=== PATIENT | female | born 1930 | race Caucasian/White ===

== ENCOUNTER → 2016-04-03 | Outpatient (CLI) | payer OTHER | LOC: FIMAGING 12:48 | PROVIDERS: ATTEND Internal Medicine Hematology & Oncology | DX: M51.34 Other intervertebral disc degeneration, thoracic region (principal); M51.36 Other intervertebral disc degeneration, lumbar region; M19.042 Primary osteoarthritis, left hand; M17.11 Unilateral primary osteoarthritis, right knee; Z96.652 Presence of left artificial knee joint ==

== ENCOUNTER 2016-06-24 08:15 | Inpatient (IN) | payer OTHER ==
--- NOTE | 2016-06-24 08:28 | CPEKG ---
Heart Rate: 73 RR Interval: 822 QRSD Interval: 156 QT Interval: 388 QTC Interval: 428 QRS [place]: 54 T [place]: -18 EKG Severity - ABNORMAL ECG - EKG Impression: ATRIAL FIBRILLATION, V-RATE 63-99 EKG Impression: RIGHT BUNDLE BRANCH BLOCK Electronically Signed By: Jorge Rivera 24-Jun-2016 09:02:25
--- NOTE | 2016-06-24 08:32 | EDPHY ---
H & P Time Seen by Provider: 06/24/16 08:22 HPI/ROS: CHIEF COMPLAINT: Syncope, head injury HISTORY OF PRESENT ILLNESS: The patient has a history of atrial fibrillation and is anticoagulated. She is brought to the emergency department by paramedics after a syncopal episode at home. The patient did sustain a significant injury to her head resulting in a very large forehead hematoma. The patient denies antecedent chest pain or shortness of breath. The patient does have a history of atrial fibrillation and is on Coreg. The patient denies any lower extremity complaints of pain, abdominal pain or low back pain. The patient does complain of a mild to moderate headache. The patient does complain of some mild posterior neck pain. Paramedics did report a noted significant sinus pauses in route. In reviewing the rhythm strips, there appears to be episodes of to 2 second pauses. They reported they felt a observed 10 second pauses but were unable to capture them. REVIEW OF SYSTEMS: A comprehensive 10 point review of systems is otherwise negative aside from elements mentioned in the history of present illness. Source: Patient Exam Limitations: No limitations - Personal History Tetanus Vaccine Date: A CHILDHOOD - Medical/Surgical History Hx Asthma: No Hx Chronic Respiratory Disease: Yes Hx Diabetes: No Hx Cardiac Disease: Yes Hx Renal Disease: Yes Hx Cirrhosis: No Hx Alcoholism: No Hx HIV/AIDS: No Hx Splenectomy or Spleen Trauma: No Other PMH: medical- COPD, CHF, [place], HTN, CKD, chronic AFIB, heart failure, dyslipidemia, chronic O2. surgical- tonsilectomy, ortho, stent x2, mitral valve repaired. open heart surgery may 2013 - Social History Smoking Status: Former smoker - Physical Exam Exam: General Appearance: Alert, no distress Head: Large 10 cm x 10 cm frontal scalp hematoma noted with superficial abrasions Eyes: Pupils equal, round, reactive ENT, Mouth: No hemotympanum, no oral trauma Neck: In cervical collar, minimal tenderness to palpation noted in the posterior cervical spine, poorly localized Respiratory: No chest wall tender, subcutaneous air, lungs clear bilaterally Cardiovascular: Irregular rate, 2/6 systolic ejection murmur Abdomen: Abdomen is soft and nontender, pelvis stable Skin: No lacerations, No abrasion Back: No midline T/L/S pain Extremities: Nontender, full range of motion Neurological: A&Ox3, normal motor function, normal sensory exam Constitutional: Initial Vital Signs O2 Sat (%) 100 06/24/16 08:28 O2 Delivery Mode Nasal Cannula O2 (L/minute) 3 Allergies/Adverse Reactions: heparin Allergy (Severe, Verified 06/24/16 09:59) Rash Home Medications: Medication Instructions Recorded Allopurinol [Allopurinol 100 MG 100 mg PO DAILY 07/25/11 (*)] Multivitamins [Multivitamin (*)] 1 each PO DAILY 07/25/11 Atorvastatin Calcium [Lipitor 20 20 mg PO HS 03/08/13 mg (*)] Famotidine [Pepcid 20 MG (*)] 20 mg PO DAILY 04/29/13 Aspirin [Aspirin 81mg (*)] 81 mg PO DAILY 07/08/13 Oxybutynin Chloride [Ditropan] 5 mg PO BID #60 tab 07/15/13 Potassium Cl [Klor-Con 20 meq (*)] 20 meq PO BID 09/22/13 Warfarin Sodium [Coumadin 3MG (*)] 3 mg PO MWF@16 09/22/13 Calcitriol [Calcitriol (*)] 0.5 mcg PO MOTUWETHFR 06/24/16 Carvedilol [Coreg (*)] 25 mg PO BIDMEAL 06/24/16 Furosemide [Lasix 80 MG (*)] 80 mg PO BID@06/24/16 Herbals/Supplements -Info Only 1 ea PO DAILY 06/24/16 Methimazole [Tapazole 5MG (*)] 5 mg PO DAILY 06/24/16 Warfarin Sodium [Coumadin 3MG (*)] 1.5 mg PO SUTUTHSA@16 06/24/16 Medical Decision Making - Diagnostics EKG Interpretation: EKG: Complete interpretation has been separately recorded in the [facility] archive. Summary impression: Atrial fibrillation, right bundle branch block, rate 73 Imaging Results: Imaging Impressions Chest X-Ray 06/24/16 08:28 Impression: Cardiomegaly with evidence of underlying congestive heart failure with mild pulmonary vascular congestion and interstitial prominence and small left pleural effusion. Cervical Spine CT 06/24/16 08:29 Impression: 1. No acute fracture or soft tissue swelling. 2. Large left thyroid mass compressing and displacing the airway to the right 3. If the patient has persistent pain or neurologic deficits, consider cervical spine MRI. Findings discussed with Emergency Department physician, Jorge Rivera on June 24, 2016 at 9:[address] 06/24/16 08:29 Impression: 1. No acute intracranial hemorrhage or acute fracture. 2. Large right frontal scalp hematoma. Findings discussed with Emergency Department physician, Jorge Rivera on June 24, 2016 at 9:18 a.m. ED Course/Re-evaluation: The patient presents to the ED after a unwitnessed syncopal episode. She presents with fairly significant head trauma. She was taken for a stat CT scan of the head and cervical spine which demonstrate no evidence of an acute intracranial hemorrhage or skull fracture. The patient has no evidence of cervical spine fracture. She does have a known thyroid mass. The patient was placed on a cardiac catheterization technician. We did observe several episodes of sinus pauses in the emergency department along just was approximately 9 seconds. She had several other pauses 2-3 seconds in duration. The patient had no loss of consciousness during these episodes. I have cleared the patient's cervical spine radiographically. Consultation was made with the patient's regular rate clerk passenger. She currently is on 25 mg of Coreg twice daily. Cardiology recommends admission to the PCU by the hospitalist. Coreg should be held. They will see the patient shortly. Pacemaker pads have been applied to the patient's chest. The patient is noted to have chronic significant cardiomegaly on her chest x-ray without evidence of significant pulmonary edema. Patient was re-evaluated at 9:30 a.m.. She continues to be neurologically intact. Repeat examination demonstrates no evidence of a obvious additional traumatic injury I spoke the hospitalist at 9:32 a.m. The patient will be admitted by Dr. Corey Hairston. While waiting for a bed to the PCU, the patient was noted to have a significant 20 second pause with associated loss of consciousness. She return to a normal atrial fibrillation rhythm before the transthoracic pacemaker could be started. The patient was moved to the resuscitation room. Her bed status has been upgraded to ICU. I consulted with Dr. Michael Dillard from Cardiology at 10:20 a.m. and requested emergent ED consultation. He is evaluating the patient at 10 :22am. 11:30 a.m.: Patient continues to await transfer to the cardiac catheterization lab. She has been placed on a transthoracic pacemaker in the emergency department. She has required episodic bouts of transthoracic pacing. Patient received IV morphine for pain control. Differential Diagnosis: Differential diagnosis considered includes intracranial hemorrhage, skull fracture, cervical spine fracture, myocardial infarction, congestive heart failure, arrhythmia Critical Care Time: Critical care time exclusive of procedures and exclusive of the PA's time was 85 minutes, performed by myself, Jorge Rivera MD. The patient presents to the ED with syncope resulting in fairly significant facial trauma. The patient was noted to have sinus pauses in the emergency department. Pacemaker pads have been applied. The patient will require admission to a monitored bed this evening. Consultation was made with both Cardiology and hospital base Medicine regarding the patient's presentation and admission. - Data Points Laboratory Results: Laboratory Results 06/24/16 08:20 06/24/16 08:20 06/24/16 06/24/16 06/24/16 08:20 08:20 08:20 WBC 6.09 10^3/uL 10^3/uL (3.80-9.50) RBC 3.85 10^6/uL L 10^6/uL (4.18-5.33) Hgb 10.4 g/dL L g/dL (12.6-16.3) Hct 33.6 % L % (38.0-47.0) MCV 87.3 fL fL (81.5-99.8) MCH 27.0 pg L pg (27.9-34.1) MCHC 31.0 g/dL L g/dL (32.4-36.7) RDW 16.7 % H % (11.5-15.2) Plt Count 371 10^3/uL 10^3/uL (150-400) MPV 9.8 fL fL (8.7-11.7) Neut % (Auto) 56.1 % % (39.3-74.2) Lymph % (Auto) 25.0 % % (15.0-45.0) [place] % (Auto) 9.9 % % (4.5-13.0) Eos % (Auto) 7.6 % % (0.6-7.6) Baso % (Auto) 0.7 % % (0.3-1.7) Nucleat RBC Rel Count 0.0 % % (0.0-0.2) Absolute Neuts (auto) 3.43 10^3/uL 10^3/uL (1.70-6.50) Absolute Lymphs (auto) 1.52 10^3/uL 10^3/uL (1.00-3.00) Absolute Monos (auto) 0.60 10^3/uL 10^3/uL (0.30-0.80) Absolute Eos (auto) 0.46 10^3/uL H 10^3/uL (0.03-0.40) Absolute Basos (auto) 0.04 10^3/uL 10^3/uL (0.02-0.10) Absolute Nucleated RBC 0.00 10^3/uL 10^3/uL (0-0.01) Immature Gran % 0.7 % % (0.0-1.1) Immature Gran # 0.04 10^3/uL 10^3/uL (0.00-0.10) PT 31.7 SEC H SEC (12.0-15.0) INR 3.02 H (0.83-1.16) APTT 39.0 SEC H SEC (23.0-38.0) Sodium 144 mEq/L mEq/L (134-144) Potassium 4.0 mEq/L mEq/L (3.5-5.2) Chloride 106 mEq/L mEq/L (97-110) Carbon Dioxide 28 mEq/l mEq/l (22-31) Anion Gap 10 mEq/L mEq/L (8-16) BUN 49 mg/dL H mg/dL (7-23) Creatinine 1.6 mg/dL H mg/dL (0.6-1.0) Estimated GFR 31 Glucose 112 mg/dL H mg/dL (70-100) Calcium 9.8 mg/dL mg/dL (8.5-10.4) Troponin I 0.014 ng/mL ng/mL (0-0.034) Medications Given: Discontinued Medications Acetaminophen (Tylenol) 1,000 mg PO EDNOW ONE Stop: 06/24/16 09:50 Last Admin: 06/24/16 09:50 Dose: 1,000 mg Oxycodone HCl (Oxycodone Ir) 5 mg PO EDNOW ONE Stop: 06/24/16 10:02 Last Admin: 06/24/16 10:57 Dose: 5 mg Departure - Departure Disposition: [facility] Acute Clinical Impression: Atrial fibrillation, Sinus pause, Syncope, Scalp hematoma, Mitral valve regurgitation Condition: Fair
[2016-06-24 08:41] LABS: % IMMATURE GRANULYOCYTES 0.7 % (0.0-1.1); ABSOLUTE IMMATURE GRANULOCYTES 0.04 10^3/uL (0.00-0.10); ADD DIFF? NO; ADD MORPH? NO; ADD SCAN? NO; ATYPICAL LYMPHOCYTE FLAG 0 (0-99); FRAGMENT RBC FLAG 20 (0-99); HEMATOCRIT 33.6 % (38.0-47.0); HEMOGLOBIN 10.4 g/dL (12.6-16.3); LEFT SHIFT FLG 0 (0-99); LIPEMIA HEMOLYSIS FLAG 80 (0-99); MEAN CELL VOLUME 87.3 fL (81.5-99.8); MEAN PLATELET VOLUME 9.8 fL (8.7-11.7); PLATELET CLUMPS FLAG 20 (0-99); PLATELET COUNT 371 10^3/uL (150-400); RED BLOOD CELL COUNT 3.85 10^6/uL (4.18-5.33); RED CELL DISTRIBUTION WIDTH 16.7 % (11.5-15.2)
[2016-06-24 08:55] LABS: ANION GAP 10 mEq/L (8-16); CALCIUM 9.8 mg/dL (8.5-10.4); CARBON DIOXIDE 28 mEq/l (22-31); CHLORIDE 106 mEq/L (97-110); CREATININE 1.6 mg/dL (0.6-1.0); GLOMERULAR FILTRATION RATE 31; GLUCOSE 112 mg/dL (70-100); SODIUM 144 mEq/L (134-144)
[2016-06-24 09:05] LABS: TROPONIN I 0.014 ng/mL (0-0.034)
[2016-06-24 09:17] LABS: INR 3.02 (0.83-1.16); PROTIME(PATIENT) 31.7 SEC (12.0-15.0)
[2016-06-24] MEDS ORDERED: ACETAMINOPHEN 500 MG TAB ONE (09:45)
[2016-06-24] MEDS ORDERED: ACETAMINOPHEN 500 MG TAB PO ONE (09:49)
[2016-06-24] MEDS ORDERED: oxyCODONE IR 5 MG TAB PO ONE (10:01)
[2016-06-24] MEDS ORDERED: LIDOCAINE 1% 30 ML SDV ONE (11:33)
[2016-06-24] MEDS ORDERED: fentaNYL 100 MCG/2 ML INJ ONE (11:34)
[2016-06-24] MEDS ORDERED: MIDAZOLAM 2 MG/2 ML VIAL ONE (11:34)
[2016-06-24] MEDS ORDERED: LIDO/EPI 1% **for epidural** 30 ML SDV ONE (11:34)
[2016-06-24] MEDS ORDERED: BUPIVACAINE 0.5% 30 ML SDV ONE (11:34)
[2016-06-24] MEDS ORDERED: IOPAMIDOL (ISOVUE-300) 150 ML BTL ONE (11:35)
--- NOTE | 2016-06-24 11:44 | PDCARCONS ---
Cardiology Consult Reason for Consult: Profound pauses (>10 seconds) Chief Complaint: Syncope Requesting Physician: ER physician History of Present Illness: Patient is an 85 y/o female with multiple medical issues (CAD/PCI, multiple myeloma, diastolic CHF), HTN, HLP, MVR with MAZE (2013), chronic atrial fibrillation (on coumadin with [id number] score of 6), CRI, COPD, and hypothyroidism, who presented to [facility] ER after syncope and fall at home. Patient has been doing very well, without any complaints - according to both the patient and daughter, present with the patient in the room today. No chest pains or pressure. No PND or orthopnea. Patient has reportedly never had a syncopal event in the past. Fall today led to superficial trauma to her forehead. CT scan in the ER without intercranial pathology noted. Patient is a DNR, and they would otherwise, according to both the patient and the daughter , not have come to the ER, but the trauma from the fall led to the desire for work up. INR today was noted to be 3. Conversations between the patient and daughter led to the desire to have a cardiac work up performed. Several times, while talking to the patient (who reportedly lives alone), she passed out with panel monitor revealing pauses that were up to 30 seconds in duration, prior to cardiology presence in the ER exam room. Earlier in the day, the patient's pauses were only 8 seconds in duration, and did not lead to altered mental status. The patient is on max dose therapy on Coreg (25 mg twice per day ), but the duration and acuity of the symptoms noted require more accelerated resolution. In depth conversation with the patient and daughter about risks and benefits of the PPM procedure. Furthermore, it was discussed that the PPM implant is NOT similar to "open heart surgery". Consent was obtained via conversations with the daughter, given the patient being in and out of lucidity. There is a risk given the patient's INR being 3, but once again, the patient's pauses were becoming more protracted and severe with ongoing symptoms being noted with nearly every event noted on telemetry. 12 point review of systems was unremarkable outside of that which was mentioned above. History Information - Allergies/Home Medication List Allergies/Adverse Reactions: heparin Allergy (Severe, Verified 06/24/16 09:59) Rash Home Medications: Allopurinol [Allopurinol 100 MG (*)] 100 mg PO DAILY 07/25/11 [Last Taken ] Multivitamins [Multivitamin (*)] 1 each PO DAILY 07/25/11 [Last Taken 06/23/16] Atorvastatin Calcium [Lipitor 20 mg (*)] 20 mg PO HS 03/08/13 [Last Taken ] Famotidine [Pepcid 20 MG (*)] 20 mg PO DAILY 04/29/13 [Last Taken 06/23/16] Aspirin [Aspirin 81mg (*)] 81 mg PO DAILY 07/08/13 [Last Taken 06/23/16] Potassium Cl [Klor-Con 20 meq (*)] 20 meq PO BID 09/22/13 [Last Taken 06/23/16 21:00] Warfarin Sodium [Coumadin 3MG (*)] 3 mg PO MWF@16 09/22/13 [Last Taken 06/23/16] Calcitriol [Calcitriol (*)] 0.5 mcg PO MOTUWETHFR 06/24/16 [Last Taken 06/23/16] Carvedilol [Coreg (*)] 25 mg PO BIDMEAL 06/24/16 [Last Taken 06/23/16 18:00] Furosemide [Lasix 80 MG (*)] 80 mg PO BID@06/24/16 [Last Taken 06/23/16 19 :00] Herbals/Supplements -Info Only 1 ea PO DAILY 06/24/16 [Last Taken Unknown] Methimazole [Tapazole 5MG (*)] 5 mg PO DAILY 06/24/16 [Last Taken 06/23/16] Warfarin Sodium [Coumadin 3MG (*)] 1.5 mg PO SUTUTHSA@16 06/24/16 [Last Taken ] - Past Medical History atrial fibrillation, coronary artery disease, GERD, hearing deficit, hypertension Additional medical history: [place], CRI, COPD, multiple myeloma - Surgical History Reports: coronary stent, vascular surgery Additional surgical history: MVR (2013) - Family History Positive for: non-pertinent - Social History Smoking Status: Former smoker Alcohol Use: None Drug Use: None Cardiac History - Cardiac History Past Cardiac History: CAD, PCI, MVR Cardiac Risk Factors: hypertension (>140/90), lipidemia, age > 65 Timing/Duration: Hours Severity: severe Severity Scale: 10 Activities at Onset: activity Modifying Factors: improves with: oxygen, rest Associated Symptoms: syncope [place] Risk Evaluation age greater or equal to 65: yes greater or equal to 3 CAD risk factors: yes known CAD(stenosis greater or eqaul to 50%): yes ASA use in past 7 days: yes severe angina(greater or equal to 2 episodes in 24hrs): no EKG ST changes greater or equal to 0.5mm: no positive cardiac marker: no Total Score: 4 [place] Score: 19.9% risk Physical Exam Temp Pulse Resp BP Pulse Ox 36.6 C 100 16 142/70 H 98 06/24/16 08:29 06/24/16 11:00 06/24/16 11:00 06/24/16 11:00 06/24/16 11:00 O2 (L/minute) 3 Constitutional: chronically ill appearing, uncomfortable Eyes: PERRL Ears, Nose, Mouth, Throat: moist mucous membranes Cardiovascular: systolic murmur, irregularly irregular, bradycardia, No edema Peripheral Pulses: 2+: dorsalis-pedis (R), dorsalis-pedis (L) Respiratory: no respiratory distress, no rales or rhonchi Gastrointestinal: normoactive bowel sounds Skin: warm, other (head haematoma) Musculoskeletal: no muscle tenderness Neurologic: AAOx3 (when heart rate was normal....when pauses noted, patient would syncope), weakness, CN II-XII Intact Psychiatric: interacting appropriately Lab and Imaging 06/24/16 08:20 06/24/16 08:20 WBC 6.09 10^3/uL (3.80-9.50) 06/24/16 08:20 RBC 3.85 10^6/uL (4.18-5.33) L 06/24/16 08:20 Hgb 10.4 g/dL (12.6-16.3) L 06/24/16 08:20 Hct 33.6 % (38.0-47.0) L 06/24/16 08:20 MCV 87.3 fL (81.5-99.8) 06/24/16 08:20 MCH 27.0 pg (27.9-34.1) L 06/24/16 08:20 MCHC 31.0 g/dL (32.4-36.7) L 06/24/16 08:20 RDW 16.7 % (11.5-15.2) H 06/24/16 08:20 Plt Count 371 10^3/uL (150-400) 06/24/16 08:20 MPV 9.8 fL (8.7-11.7) 06/24/16 08:20 Neut % (Auto) 56.1 % (39.3-74.2) 06/24/16 08:20 Lymph % (Auto) 25.0 % (15.0-45.0) 06/24/16 08:20 [place] % (Auto) 9.9 % (4.5-13.0) 06/24/16 08:20 Eos % (Auto) 7.6 % (0.6-7.6) 06/24/16 08:20 Baso % (Auto) 0.7 % (0.3-1.7) 06/24/16 08:20 Nucleat RBC Rel Count 0.0 % (0.0-0.2) 06/24/16 08:20 Absolute Neuts (auto) 3.43 10^3/uL (1.70-6.50) 06/24/16 08:20 Absolute Lymphs (auto) 1.52 10^3/uL (1.00-3.00) 06/24/16 08:20 Absolute Monos (auto) 0.60 10^3/uL (0.30-0.80) 06/24/16 08:20 Absolute Eos (auto) 0.46 10^3/uL (0.03-0.40) H 06/24/16 08:20 Absolute Basos (auto) 0.04 10^3/uL (0.02-0.10) 06/24/16 08:20 Absolute Nucleated RBC 0.00 10^3/uL (0-0.01) 06/24/16 08:20 Immature Gran % 0.7 % (0.0-1.1) 06/24/16 08:20 Immature Gran # 0.04 10^3/uL (0.00-0.10) 06/24/16 08:20 PT 31.7 SEC (12.0-15.0) H 06/24/16 08:20 INR 3.02 (0.83-1.16) H 06/24/16 08:20 APTT 39.0 SEC (23.0-38.0) H 06/24/16 08:20 Sodium 144 mEq/L (134-144) 06/24/16 08:20 Potassium 4.0 mEq/L (3.5-5.2) 06/24/16 08:20 Chloride 106 mEq/L (97-110) 06/24/16 08:20 Carbon Dioxide 28 mEq/l (22-31) 06/24/16 08:20 Anion Gap 10 mEq/L (8-16) 06/24/16 08:20 BUN 49 mg/dL (7-23) H 06/24/16 08:20 Creatinine 1.6 mg/dL (0.6-1.0) H 06/24/16 08:20 Estimated GFR 31 06/24/16 08:20 Glucose 112 mg/dL (70-100) H 06/24/16 08:20 Calcium 9.8 mg/dL (8.5-10.4) 06/24/16 08:20 Troponin I 0.014 ng/mL (0-0.034) 06/24/16 08:20 Visualized and Interpreted Chest x-ray results: Yes Chest X-ray Interpretation: other (cardiomegaly with effusions) Visualized and Interpreted EKG results: Yes EKG additional interpertation: atrial fibrillation with protracted pauses noted. Telemetry: atrial fibrillation with slow ventricular response. Pauses were >10 sec A/P Assessment: Patient is an 85 y/o female with multiple medical issues. Newly noted pauses > 10 seconds with syncope with underlying atrial fibrillation history. Head trauma secondary to fall today from syncope. INR noted to be 3. Patient and daughter wanting to have Pacer implanted, but not wanting to have CPR performed . Patient was wishing for nothing more to be done, but daughter stated that the pacer is desired. Long discussion about two options - A: do no further medical procedures, and allow the patient comfort or B: implant pacer (single lead). Plan: Risks and benefits were discussed. A single lead pacer is being implanted. Further discussion post procedure. This procedure being semi urgent given the instability of the patient with lengthy pauses being noted.
[2016-06-24] MEDS ORDERED: NS 1,000 ML IV ONE (12:07)
[2016-06-24] MEDS ORDERED: DIAZEPAM 5 MG TAB PO ONE (12:07)
[2016-06-24] MEDS ORDERED: diphenhydrAMINE 25 MG CAP PO ONE (12:07)
[2016-06-24] MEDS ORDERED: ceFAZolin 2 GM/DEXTROSE 100 ML IV ONE (12:07)
[2016-06-24] MEDS ORDERED: BACITRACIN IRRIGATION/NS 50,000 UNITS/1,000 ML BTL IRR ONE (12:07)
--- NOTE | 2016-06-24 14:34 | SUROPNOTE ---
[facility] Operative Report - Surgery Procedure: Venogram for left subclavian assessment PPM implant (single chamber given long standing atrial fibrillation) Indication: Protracted pauses (>10 seconds) with syncope Procedure details: Consent was obtained in the ER with nursing staff present, in an urgent manner. The patient was not able to sign consent given her inability to maintain consciousness. Her daughter was present with the patient and understood the risks and benefits of the pending surgery. Initial reports of DNR were addressed (in that this condition would have to be withheld for the pending PPM procedure). Transcutaneous pacer pads were in place in the ER, and used extensively until PPM was placed successfully. No transvenous pacing was implemented given the patient's history (severe TR and cardiomegaly - which would make placement of this bridge difficult, in a patient that needed to have semi urgent placement of PPM). Patient was brought to the cardiac company laborer and prepped in the usual sterile fashion. A Venogram was performed to both isolate and ensure patency of the left subclavian vein. Lidocaine was used for local anesthetic, and a single stick was performed with isolation of the subclavian vein by anatomic markers and the previously reported venogram. A wire was placed through the needle, and a pocket was then created. The wire was pulled into the pocked, and a raytech soaked in Bacitracin was placed in the pocket. The ventricular lead was placed after numerous trials and iterations on the stylets. Dr. Heidy Valderrama was called into the room given the anatomy that was noted, and was ultimately successful with placement of an inferior position. The patient's severe tricuspid regurgitation and severely dilated right atrium made standard positioning on the septal wall impossible. RV lead data: Biotronik Solia S 53 [id number] with threshold of 0.6V at 0.4 ms. R wave was 8.5 mV and Imp was 526 ohms. This lead was sutured into position. The Raytech was explanted and the pocket was inspected for haemostasis (given the INR of 3). No bleeding was appreciated, and the pocket was aggressively flushed. The device (Etrinsa 8 SR-T ([id number]) was placed into the pocket after attachment of the ventricular lead. This device was sutured into position. Fluoroscopic review of the device was performed. No complications were appreciated The patient tolerated the procedure well. Morning CXR and interrogation are pending. I spoke with the patient's daughter.
--- NOTE | 2016-06-24 15:22 | CPEKG ---
Heart Rate: 85 RR Interval: 706 P-R Interval: 192 QRSD Interval: 158 QT Interval: 400 QTC Interval: 476 P [place]: 0 QRS [place]: 4 T Wave [place]: -49 EKG Severity - ABNORMAL ECG - EKG Impression: VENTRICULAR-PACED COMPLEXES EKG Impression: RIGHT BUNDLE BRANCH BLOCK Electronically Signed By: Sunitha Segura 25-Jun-2016 10:01:36
[2016-06-24] MEDS ORDERED: PHYTONADIONE 2 MG in NS 50 ML IV ONE (19:07)
[2016-06-24] MEDS ORDERED: ONDANSETRON DISINTEGRATING 4 MG TAB PO PRN (19:08)
[2016-06-24] MEDS ORDERED: oxyCODONE IR 5 MG TAB PO PRN (19:14)
[2016-06-24] MEDS: ONDANSETRON 4 MG/2 ML VIAL IVP PRN (19:45)
--- NOTE | 2016-06-24 19:58 | GHP ---
[f rep st] HISTORY AND PHYSICAL DATE OF ADMISSION: 06/24/2016 HISTORY OF PRESENT ILLNESS: The patient is a pleasant 85-year-old female with a history of atrial f ibrillation and coronary disease, who presents with a fall today. It sounds as if she had syncope a nd fell. She landed on her face. Prior to that she had been doing well. She denied antecedent jimmie st pains and chest pressure. She has not been having any heart failure symptoms, such as PND or ort hopnea. Does not have a history of syncopal events in the past. She had some trauma to her forehea d. In the emergency department, she had a CT scan showing no intracranial pathology, but she is not ed to have a number of pauses, including up to 30 seconds in duration. She was seen by Cardiology a nd brought emergently for pacemaker placement, following discussion about the risks and benefits and her DNR status. I am seeing the patient after pacemaker placement. Currently, the patient says she feels well. Pain is reasonably well controlled. She is able to mov e her right eye without pain or impingement. She has a significant amount of ecchymoses in her righ t forehead and right upper eyelid. She says her left hand feels strong, and her pain is reasonably well controlled. She denies chest pain and shortness of breath. She wants to know if she can eat. I have discussed case with Dr. Michael Dillard, as well as Dr. Akshat Rivera in the emergency department. REVIEW OF SYSTEMS: A complete 10-point review of systems conducted and negative except as noted in the HPI. PAST MEDICAL HISTORY: 1. Coronary artery disease status, post PCI. 2. Multiple myeloma. 3. Diastolic heart failure. 4. Hypertension. 5. Hyperlipidemia. 6. Mitral valve replacement with Maze procedure in 2013. 7. Chronic atrial fibrillation. [id number] score 6. 8. Chronic kidney disease. 9. Chronic obstructive pulmonary disease. 10. Hypothyroidism. 11. Gout. ALLERGIES: Heparin. HOME MEDICATIONS: Aspirin, carvedilol, warfarin, allopurinol, atorvastatin, calcitriol, famotidine, furosemide, methimazole, multivitamin, oxybutynin, potassium chloride. SOCIAL HISTORY: She lives alone near [facility]. She is a DNR. She does not drink alcohol or smok e cigarettes. FAMILY HISTORY: Parents . PHYSICAL EXAMINATION: VITAL SIGNS: Temp 36.3, blood pressure 139/79, pulse 87, breathing 18 times a minute, 99% on 3 L. GENERAL: No acute distress. HEENT: She has multiple facial ecchymoses, inc luding a [id number] sized hematoma on her right forehead and significant hematoma in her right eyelid. As I had mentioned, her extraocular movements are intact without impingement, sticking or p ain. Oropharynx is clear. Mucous membranes are moist. NECK: Supple without lymphadenopathy or JV D. LUNGS: Clear to auscultation bilaterally. HEART: S1, S2. Her pacer site is clean, dry and in tact without obvious hematoma. ABDOMEN: Full, soft, nontender, nondistended. There is no rebound or guarding. EXTREMITIES: Lowe r extremities showed no edema. Calves are nontender. SKIN: Without rash. The aforementioned ecch ymoses. NEUROLOGIC: Grossly nonfocal. STUDIES: Initial EKG shows AFib at 73 with normal axis and intervals. Initial chest x-ray shows ca rdiomegaly with some upper zone redistribution but no pneumothorax. Head CT shows no intracranial h emorrhage, no acute fracture; large scalp hematoma. Repeat EKG, also interpreted by me, shows a karri tricular-based rhythm and a left bundle branch block pattern. Post placement chest x-ray, interpret ed by me, shows a single-lead pacemaker placement without pneumothorax. I have discussed the case with Dr. Michael Dillard. ASSESSMENT/PLAN: This is an 85-year-old female with atrial fibrillation, on anticoagulation, with s ignificant sinus pauses and resultant syncope. 1. Sinus pauses: I agree that pacemaker was indicated. Despite her julius agents, she would have r equired some sort of invasive pacing, irrespective, and single-lead pacer was reasonable. 2. Anticoagulation, with falls: I think the patient does have a high stroke risk; there is no ques tion about that; however, she is also at risk for bleeding acutely, both into her pacer pocket which gives her risk of hematoma and subsequent infection, as well as on her forehead. Discussed this Dr Gilles Dillard. Will give her 2 mg of vitamin K and FFP now. 3. Falls: It is probably appropriate that Trauma see her. I will call them to do a consultation. She has a soft belly, and she has had imaging of multiple things, including a C-spine (which I negl ected to report in the imaging section), which shows no acute fracture or soft tissue mass. It does note a large left thyroid mass displacing the airway to the right. 4. Thyroid mass: She is on methimazole. I suspect she has an active goiter. This can be verified with her primary care physician. 5. Multiple myeloma: Her counts seem normal other than mild anemia. 6. Chronic kidney disease: Creatinine is essentially at its baseline. 7. Diastolic heart failure: Will continue her diuretics. 8. Atrial fibrillation: Will hold her warfarin and do a moderate reversal of her anticoagulation w ith the goal of resuming warfarin in a day or 2. I will hold her carvedilol tonight, but I suspect it should be reinstituted in the morning. DISPOSITION: She is inpatient. CODE STATUS: Do not resuscitate. PT and OT will see her. /[id number]/MODL
[2016-06-24] MEDS: POTASSIUM CL 20 MEQ TAB PO SCH (20:55)
[2016-06-24] MEDS: CALCITRIOL 0.25 MCG CAP PO SCH (20:55)
[2016-06-24] MEDS: OXYBUTYNIN CHLORIDE 5 MG TAB PO SCH (20:55)
[2016-06-24] MEDS: ATORVASTATIN CALCIUM 20 MG TAB PO SCH (20:55)
[2016-06-24] MEDS: ACETAMINOPHEN 500 MG TAB PO SCH (21:05)
[2016-06-25 05:08] LABS: % IMMATURE GRANULYOCYTES 0.5 % (0.0-1.1); ABSOLUTE IMMATURE GRANULOCYTES 0.04 10^3/uL (0.00-0.10); ADD DIFF? NO; ADD MORPH? NO; ADD SCAN? NO; ATYPICAL LYMPHOCYTE FLAG 0 (0-99); FRAGMENT RBC FLAG 20 (0-99); HEMATOCRIT 30.4 % (38.0-47.0); HEMOGLOBIN 9.4 g/dL (12.6-16.3); LEFT SHIFT FLG 0 (0-99); LIPEMIA HEMOLYSIS FLAG 80 (0-99); MEAN CELL HEMOGLOBIN 27.2 pg (27.9-34.1); MEAN CELL HEMOGLOBIN CONCENTR. 30.9 g/dL (32.4-36.7); MEAN CELL VOLUME 88.1 fL (81.5-99.8); PLATELET CLUMPS FLAG 0 (0-99); PLATELET COUNT 300 10^3/uL (150-400); RED BLOOD CELL COUNT 3.45 10^6/uL (4.18-5.33); RED CELL DISTRIBUTION WIDTH 16.7 % (11.5-15.2)
[2016-06-25 05:24] LABS: ANION GAP 9 mEq/L (8-16); CALCIUM 9.8 mg/dL (8.5-10.4); CARBON DIOXIDE 26 mEq/l (22-31); CHLORIDE 108 mEq/L (97-110); CREATININE 1.4 mg/dL (0.6-1.0); GLOMERULAR FILTRATION RATE 36; GLUCOSE 94 mg/dL (70-100); POTASSIUM 4.6 mEq/L (3.5-5.2); SODIUM 143 mEq/L (134-144)
[2016-06-25 05:29] LABS: INR 1.96 (0.83-1.16); PROTIME(PATIENT) 22.4 SEC (12.0-15.0)
[2016-06-25] MEDS: ACETAMINOPHEN 500 MG TAB PO SCH ×3 (05:38→20:52)
[2016-06-25] MEDS: METHIMAZOLE 5 MG TAB PO SCH (08:59)
[2016-06-25] MEDS: MULTIVITAMINS 1 EACH TAB PO SCH (08:59)
[2016-06-25] MEDS: POTASSIUM CL 20 MEQ TAB PO SCH ×2 (08:59→20:52)
[2016-06-25] MEDS: FAMOTIDINE 20 MG TAB PO SCH (08:59)
[2016-06-25] MEDS: FUROSEMIDE 80 MG TAB PO SCH ×2 (08:59→15:22)
[2016-06-25] MEDS: OXYBUTYNIN CHLORIDE 5 MG TAB PO SCH ×2 (08:59→20:52)
[2016-06-25] MEDS: ALLOPURINOL 100 MG TAB PO SCH (09:00)
[2016-06-25] MEDS ORDERED: Herbals/Supplements -Info Only PO SCH (09:00)
--- NOTE | 2016-06-25 09:39 | CPEKG ---
Heart Rate: 66 RR Interval: 909 QRSD Interval: 150 QT Interval: 436 QTC Interval: 457 QRS Collins: 93 T Wave Collins: -70 EKG Severity - ABNORMAL ECG - EKG Impression: ACCELERATED JUNCTIONAL ESCAPE RHYTHM EKG Impression: RIGHT BUNDLE BRANCH BLOCK EKG Impression: BORDERLINE ST DEPRESSION, LATERAL LEADS Electronically Signed By: Sunitha Segura 25-Jun-2016 10:01:44
--- NOTE | 2016-06-25 10:33 | PDCARPN ---
Cardiology Progress Note Chief Complaint: Patient with complaints of neck pains (moreso today than in comparison to yesterday). Assessment/Plan: Assessment: 06-25-16 Patient doing well today. Chief complaint is neck pains - this was not an issue yesterday - there was more an issue with forhead pains from the fall. Single lead pacer was implanted yesterday with moderate difficulty secondary to the patient's cardiac anatomy (dilated RA, dilated IVC, and severe TR). A single lead pacer was successfully placed yesterday with excellent pacing parameters noted this morning with interrogation. CXR post procedure was without pneumothorax, and this morning's CXR is pending. Minimal haematoma noted (in the setting of an INR that was elevated to 3 periprocedure). Patient feeling well today. No chest pains or pressure, just aches to joints and muscles today, thought secondary to the fall that was noted yesterday. 06-24-16 Patient is an 85 y/o female with multiple medical issues (CAD/PCI, multiple myeloma, diastolic CHF), HTN, HLP, MVR with MAZE (2013), chronic atrial fibrillation (on coumadin with [id number] score of 6), CRI, COPD, and hypothyroidism, who presented to [facility] ER after syncope and fall at home. Patient has been doing very well, without any complaints - according to both the patient and daughter, present with the patient in the room today. No chest pains or pressure. No PND or orthopnea. Patient has reportedly never had a syncopal event in the past. Fall today led to superficial trauma to her forehead. CT scan in the ER without intercranial pathology noted. Patient is a DNR, and they would otherwise, according to both the patient and the daughter , not have come to the ER, but the trauma from the fall led to the desire for work up. INR today was noted to be 3. Conversations between the patient and daughter led to the desire to have a cardiac work up performed. Several times, while talking to the patient (who reportedly lives alone), she passed out with bus driver/monitor revealing pauses that were up to 30 seconds in duration, prior to cardiology presence in the ER exam room. Earlier in the day, the patient's pauses were only 8 seconds in duration, and did not lead to altered mental status. The patient is on max dose therapy on Coreg (25 mg twice per day ), but the duration and acuity of the symptoms noted require more accelerated resolution. In depth conversation with the patient and daughter about risks and benefits of the PPM procedure. Furthermore, it was discussed that the PPM implant is NOT similar to "open heart surgery". Consent was obtained via conversations with the daughter, given the patient being in and out of lucidity. There is a risk given the patient's INR being 3, but once again, the patient's pauses were becoming more protracted and severe with ongoing symptoms being noted with nearly every event noted on telemetry. Plan: (1) Recommendations for patient to have neck CT to ensure that there is no overt fraction/pathology post fall - CXR this morning, for assessment of the PPM lead, is currently pending (2) Continue therapy on coumadin (there is a very elevated CVA risk for this patient) (3) Would resume therapy on Coreg (25 mg twice per day) - this was an outpatient therapy that was stopped given he protracted pauses that were noted in the ER yesterday. PPM implant resolved this concern. (4) Would continue therapy on lasix, but would attempt a lower dose in the acute setting (80 mg PO once per day) (5) Statins should continue for history of HLP, and maintain annual assessment of cholesterol and LFTs (6) Patient will need to have outpatient follow up with [facility] as well as outpatient pacer interrogations scheduled Subjective: Neck pains were voiced today Reviewed/Discussed With: family, hospitalist, multidisciplinary team Objective: Vital Signs (8 Hrs) Temp Pulse Resp BP Pulse Ox 06/25/16 08:00 36.4 C 84 18 164/82 H 98 06/25/16 04:00 36.4 C 71 16 172/90 H 99 Intake/Output (24 Hrs) 06/24/16 06/25/16 06/26/16 05:59 05:59 05:59 Intake Total 150 Output Total 600 Balance -450 Intake: Oral (ml) 150 Output: Urine (ml) 600 Bedpan 600 Other: Weight 77.111 kg 78.4 kg Intake Quantity Yes Sufficient Number of Voids Bedpan 1 Result Diagrams: 06/25/16 04:34 06/25/16 04:34 EKG: sinus rhythm/junctional rhythm/sinus pauses (noted yesterday) Telemetry: ventricular pacing noted today - Physical Exam Constitutional: other (patient with extensive ecchymosis to head, shoulder, arms , and legs) Eyes: PERRL, other (ecchymosis to the right eye) Ears, Nose, Mouth, Throat: moist mucous membranes Cardiovascular: regular rate and rhythm, systolic murmur, No jugular vein distention Peripheral Pulses: 2+: dorsalis-pedis (R), dorsalis-pedis (L) Respiratory: clear to auscultate bilat Gastrointestinal: normoactive bowel sounds Skin: induration, rash, other (scattered ecchymosis as above) Musculoskeletal: joint tenderness, muscular tenderness Neurologic: AAOx3, CN II-XII grossly intact Psychiatric: cooperative, interactive, following commands ICD10 Worksheet Patient Problems: Problems Problem Status Onset Atrial fibrillation Acute Mitral valve regurgitation Acute Scalp hematoma Acute Sinus pause Acute Syncope Acute Afib - Atrial fibrillation Active CAD - Coronary arteriosclerosis Active COPD - Acute exacerbation of chronic obstructive airways disease Active History of placement of stent for coronary artery disease Active Pneumonia Active Acute renal failure syndrome Acute Acute systolic CHF (congestive heart failure), NYHA class 3 Acute Chronic Disease Management/Transitional Care Program Acute Toxic multinodular goiter Acute
[2016-06-25] MEDS ORDERED: hydrALAZINE 20 MG/ML VIAL IVP PRN (15:55)
--- NOTE | 2016-06-25 16:29 | HOSPPROG ---
Hospitalist Progress Note Assessment/Plan: 85 yo F with hx of COPD, a fib, VHD presenting with c/o syncope found to be having profound sinus pause in ER now s/p PPM # a fib with long sinus pauses: up to 20 second pauses in ER leading to recurrent syncope and related facial trauma. Sp PPM placement that was somewhat complicated but successful. Monitoring on tele. Holding BB. # facial ecchymosis/neck pain: imaging of neck unremarkable and head ct x 2 not showing any kind of intracranial bleed. Vision not impaired. Holding AC, monitoring, pt/ot. # ckd: baseline creatinine ranging from 1.6-2 and currently at baseline # copd: w/o evidence of acute exacerbation, continue op medications # MM: has been fairly indolent apparently, continue to follow with oncology # chronic systolic heart failure: no e/o acute exacerbation, cardiology following # IP status, will need > 48 hours stay for eval/mgmt of above Care plan reviewed with cardiology and further hx obtained from patients daughter present at bedside. Subjective: no significant overnight events, patient currently feeling pretty fatigued, no real appetite Objective: Vital Signs Temp Pulse Resp BP Pulse Ox 36.6 C 66 16 178/81 H 91 L 06/25/16 15:17 06/25/16 15:17 06/25/16 15:17 06/25/16 16:13 06/25/16 15:17 Laboratory Results 06/25/16 04:34 06/25/16 04:34 06/24/16 06/25/16 06/26/16 05:59 05:59 05:59 Intake Total 150 Output Total 600 Balance -450 PT 22.4 SEC (12.0-15.0) H D 06/25/16 04:34 INR 1.96 (0.83-1.16) H 06/25/16 04:34 awake alert right sided ecchymoses, unable to lift lid op clear rrr no mrg cta but dec throughout soft nt nd no cce warm dry diffuse ecchymoses oriented appropriate - Time Spent With Patient Time Spent with Patient: greater than 35 minutes Time Spent with Patient: Greater than 35 minutes spent on this patients care, greater than 50% of time spent counseling, educating, and coordinating care regarding the above mentioned plan. ICD10 Worksheet Patient Problems: Problems Problem Status Onset Mitral valve regurgitation Acute Afib - Atrial fibrillation Active CAD - Coronary arteriosclerosis Active History of placement of stent for coronary artery disease Active Pneumonia Active COPD - Acute exacerbation of chronic obstructive airways disease Active Acute systolic CHF (congestive heart failure), NYHA class 3 Acute Chronic Disease Management/Transitional Care Program Acute Acute renal failure syndrome Acute Toxic multinodular goiter Acute Atrial fibrillation Acute Sinus pause Acute Syncope Acute Scalp hematoma Acute
[2016-06-25] MEDS: ONDANSETRON 4 MG/2 ML VIAL IVP PRN ×2 (17:48→21:05)
[2016-06-25] MEDS: ATORVASTATIN CALCIUM 20 MG TAB PO SCH (20:51)
[2016-06-25] MEDS: CALCITRIOL 0.25 MCG CAP PO SCH (20:51)
[2016-06-25] MEDS: CARVEDILOL 25 MG TAB PO SCH (20:52)
[2016-06-26 05:01] LABS: % IMMATURE GRANULYOCYTES 0.3 % (0.0-1.1); ABSOLUTE IMMATURE GRANULOCYTES 0.03 10^3/uL (0.00-0.10); ADD DIFF? NO; ADD MORPH? NO; ADD SCAN? NO; ATYPICAL LYMPHOCYTE FLAG 0 (0-99); FRAGMENT RBC FLAG 20 (0-99); HEMATOCRIT 30.7 % (38.0-47.0); HEMOGLOBIN 9.4 g/dL (12.6-16.3); LEFT SHIFT FLG 0 (0-99); LIPEMIA HEMOLYSIS FLAG 80 (0-99); MEAN CELL HEMOGLOBIN 27.6 pg (27.9-34.1); MEAN CELL HEMOGLOBIN CONCENTR. 30.6 g/dL (32.4-36.7); MEAN PLATELET VOLUME 10.2 fL (8.7-11.7); PLATELET CLUMPS FLAG 0 (0-99); PLATELET COUNT 289 10^3/uL (150-400); RED BLOOD CELL COUNT 3.41 10^6/uL (4.18-5.33); RED CELL DISTRIBUTION WIDTH 16.9 % (11.5-15.2)
[2016-06-26 05:07] LABS: INR 1.71 (0.83-1.16); PROTIME(PATIENT) 20.1 SEC (12.0-15.0)
[2016-06-26 05:19] LABS: ANION GAP 10 mEq/L (8-16); CALCIUM 9.7 mg/dL (8.5-10.4); CARBON DIOXIDE 28 mEq/l (22-31); CHLORIDE 107 mEq/L (97-110); CREATININE 1.4 mg/dL (0.6-1.0); GLOMERULAR FILTRATION RATE 36; GLUCOSE 96 mg/dL (70-100); POTASSIUM 4.5 mEq/L (3.5-5.2); SODIUM 145 mEq/L (134-144)
[2016-06-26] MEDS: ACETAMINOPHEN 500 MG TAB PO SCH ×3 (08:39→19:55)
[2016-06-26] MEDS: FUROSEMIDE 80 MG TAB PO SCH ×2 (09:30→16:05)
[2016-06-26] MEDS: FAMOTIDINE 20 MG TAB PO SCH (09:31)
[2016-06-26] MEDS: CARVEDILOL 25 MG TAB PO SCH (09:31)
[2016-06-26] MEDS: POTASSIUM CL 20 MEQ TAB PO SCH ×2 (09:31→19:53)
[2016-06-26] MEDS: METHIMAZOLE 5 MG TAB PO SCH (09:31)
[2016-06-26] MEDS: ALLOPURINOL 100 MG TAB PO SCH (09:31)
[2016-06-26] MEDS: MULTIVITAMINS 1 EACH TAB PO SCH (09:31)
[2016-06-26] MEDS: OXYBUTYNIN CHLORIDE 5 MG TAB PO SCH ×2 (09:32→19:54)
[2016-06-26] MEDS ORDERED: ALBUTEROL 60 PUFFS/8 GM MDI IH PRN (09:33)
[2016-06-26] MEDS ORDERED: DIAZEPAM 2 MG TAB PO PRN (10:50)
--- NOTE | 2016-06-26 12:10 | HOSPPROG ---
Hospitalist Progress Note Assessment/Plan: 85 yo F with hx of COPD, a fib, VHD presenting with c/o syncope found to be having profound sinus pause in ER now s/p PPM # a fib with long sinus pauses: up to 20 second pauses in ER leading to recurrent syncope and related facial trauma. Sp PPM placement that was somewhat complicated but successful. Monitoring on tele. Holding BB. # facial ecchymosis/neck pain: imaging of neck unremarkable and head ct x 2 not showing any kind of intracranial bleed. Vision not impaired. Holding AC, monitoring, pt/ot. Will add valium prn for muscle spasm like pain # ckd: baseline creatinine ranging from 1.6-2 and currently at baseline # copd: w/o evidence of acute exacerbation, continue op medications # MM: has been fairly indolent apparently, continue to follow with oncology # chronic systolic heart failure: no e/o acute exacerbation, cardiology following # IP status, will need > 48 hours stay for eval/mgmt of above. Patient states she will not be willing to go to SNF Care plan reviewed with patients daughter at length. Subjective: no significant overnight events, patient feeling a bit better but still not much of an appetite Objective: Vital Signs Temp Pulse Resp BP Pulse Ox 36.4 C 88 18 136/69 H 94 06/26/16 08:00 06/26/16 09:31 06/26/16 08:00 06/26/16 09:31 06/26/16 08:00 Laboratory Results 06/26/16 04:10 06/26/16 04:10 06/25/16 06/26/16 06/27/16 05:59 05:59 05:59 Intake Total 150 600 Output Total 600 Balance -450 600 PT 20.1 SEC (12.0-15.0) H 06/26/16 04:10 INR 1.71 (0.83-1.16) H 06/26/16 04:10 awake alert right sided ecchymoses, eyelid swollen but now able to lift lid, vision normal op clear rrr no mrg cta but dec throughout soft nt nd no cce warm dry diffuse ecchymoses oriented appropriate - Time Spent With Patient Time Spent with Patient: greater than 35 minutes Time Spent with Patient: Greater than 35 minutes spent on this patients care, greater than 50% of time spent counseling, educating, and coordinating care regarding the above mentioned plan. ICD10 Worksheet Patient Problems: Problems Problem Status Onset Atrial fibrillation Acute Mitral valve regurgitation Acute Scalp hematoma Acute Sinus pause Acute Syncope Acute Afib - Atrial fibrillation Active CAD - Coronary arteriosclerosis Active COPD - Acute exacerbation of chronic obstructive airways disease Active History of placement of stent for coronary artery disease Active Pneumonia Active Acute renal failure syndrome Acute Acute systolic CHF (congestive heart failure), NYHA class 3 Acute Chronic Disease Management/Transitional Care Program Acute Toxic multinodular goiter Acute
--- NOTE | 2016-06-26 12:31 | PDCARPN ---
Cardiology Progress Note Chief Complaint: No complaints today. Face continues to feel better. Neck is improved in comparison to yesterday Assessment/Plan: Assessment: 06-26-16 Patient doing better today. Neck pains are somewhat better. No chest pains or pressure. No PND or orthopnea. Facial swelling and discomfort is better today. No telemetry events overnight. Minimal discomfort to the pacer site has been noted. Ongoing scattered ecchymosis to head, neck, face, shoulder, and arms, is noted. CT of head and neck from yesterday without evidence of pathology noted - progressive haematoma to the scalp was noted, but no intercranial process noted, and no acute neck pathology appreciated. 06-25-16 Patient doing well today. Chief complaint is neck pains - this was not an issue yesterday - there was more an issue with forhead pains from the fall. Single lead pacer was implanted yesterday with moderate difficulty secondary to the patient's cardiac anatomy (dilated RA, dilated IVC, and severe TR). A single lead pacer was successfully placed yesterday with excellent pacing parameters noted this morning with interrogation. CXR post procedure was without pneumothorax, and this morning's CXR is pending. Minimal haematoma noted (in the setting of an INR that was elevated to 3 periprocedure). Patient feeling well today. No chest pains or pressure, just aches to joints and muscles today, thought secondary to the fall that was noted yesterday. 06-24-16 Patient is an 85 y/o female with multiple medical issues (CAD/PCI, multiple myeloma, diastolic CHF), HTN, HLP, MVR with MAZE (2013), chronic atrial fibrillation (on coumadin with [id number] score of 6), CRI, COPD, and hypothyroidism, who presented to [facility] ER after syncope and fall at home. Patient has been doing very well, without any complaints - according to both the patient and daughter, present with the patient in the room today. No chest pains or pressure. No PND or orthopnea. Patient has reportedly never had a syncopal event in the past. Fall today led to superficial trauma to her forehead. CT scan in the ER without intercranial pathology noted. Patient is a DNR, and they would otherwise, according to both the patient and the daughter , not have come to the ER, but the trauma from the fall led to the desire for work up. INR today was noted to be 3. Conversations between the patient and daughter led to the desire to have a cardiac work up performed. Several times, while talking to the patient (who reportedly lives alone), she passed out with cd mixer helper revealing pauses that were up to 30 seconds in duration, prior to cardiology presence in the ER exam room. Earlier in the day, the patient's pauses were only 8 seconds in duration, and did not lead to altered mental status. The patient is on max dose therapy on Coreg (25 mg twice per day ), but the duration and acuity of the symptoms noted require more accelerated resolution. In depth conversation with the patient and daughter about risks and benefits of the PPM procedure. Furthermore, it was discussed that the PPM implant is NOT similar to "open heart surgery". Consent was obtained via conversations with the daughter, given the patient being in and out of lucidity. There is a risk given the patient's INR being 3, but once again, the patient's pauses were becoming more protracted and severe with ongoing symptoms being noted with nearly every event noted on telemetry. Plan: (1) Would continue coumadin therapy given elevated stroke risk (2) Coreg was resumed last night (pressures were well controlled to somewhat hypotensive today) (3) Lasix therapy should be continued - there was some outpatient manipulation of this therapy that was ongoing. At present, the patient is on 80 mg PO in the morning with a varied dose in the early afternoon. (4) Statins to continue as at present given past history (5) Patient will need outpatient follow up with cardiology given the newly implanted PPM Subjective: Patient doing well this morning. Reviewed/Discussed With: hospitalist, multidisciplinary team Objective: Vital Signs (8 Hrs) Temp Pulse Resp BP Pulse Ox 06/26/16 12:00 36.3 C 62 17 96/40 L 99 06/26/16 09:31 88 136/69 H 06/26/16 08:00 36.4 C 89 18 136/69 H 94 Intake/Output (24 Hrs) 06/25/16 06/26/16 06/27/16 05:59 05:59 05:59 Intake Total 150 600 Output Total 600 Balance -450 600 Intake: Oral (ml) 150 600 Output: Urine (ml) 600 Bedpan 600 Other: Weight 77.111 kg 78.4 kg Intake Quantity Yes Sufficient Number of Voids Bedpan 1 Toilet 1 Result Diagrams: 06/26/16 04:10 06/26/16 04:10 EKG: ventricular paced rhythm Telemetry: ventricular pacing - Physical Exam Constitutional: WDWN, no apparent distress, obese, other (extensive head haematomas) Eyes: PERRL, EOMI Ears, Nose, Mouth, Throat: moist mucous membranes Cardiovascular: regular rate and rhythm, systolic murmur, No jugular vein distention Peripheral Pulses: 2+: dorsalis-pedis (R), dorsalis-pedis (L) Respiratory: clear to auscultate bilat, no crackles, no wheezes Gastrointestinal: normoactive bowel sounds Skin: abrasion Musculoskeletal: muscular tenderness Neurologic: AAOx3, CN II-XII grossly intact Psychiatric: cooperative, interactive, following commands ICD10 Worksheet Patient Problems: Problems Problem Status Onset Atrial fibrillation Acute Mitral valve regurgitation Acute Scalp hematoma Acute Sinus pause Acute Syncope Acute Afib - Atrial fibrillation Active CAD - Coronary arteriosclerosis Active COPD - Acute exacerbation of chronic obstructive airways disease Active History of placement of stent for coronary artery disease Active Pneumonia Active Acute renal failure syndrome Acute Acute systolic CHF (congestive heart failure), NYHA class 3 Acute Chronic Disease Management/Transitional Care Program Acute Toxic multinodular goiter Acute
[2016-06-26] MEDS ORDERED: NS 500 ML IV ONE (14:37)
[2016-06-26] MEDS: IPRATROPIUM/ALBUTEROL 3 ML DEYVIAL IH SCH ×2 (17:31→21:04)
[2016-06-26] MEDS: CALCITRIOL 0.25 MCG CAP PO SCH (18:39)
[2016-06-26] MEDS ORDERED: NS 250 ML IV ONE (19:00)
[2016-06-26] MEDS: ATORVASTATIN CALCIUM 20 MG TAB PO SCH (19:54)
[2016-06-27 05:10] LABS: INR 1.93 (0.83-1.16); PROTIME(PATIENT) 22.2 SEC (12.0-15.0)
[2016-06-27] MEDS: ACETAMINOPHEN 500 MG TAB PO SCH ×4 (05:54→21:33)
--- NOTE | 2016-06-27 09:25 | PDCARPN ---
Cardiology Progress Note Chief Complaint: Patient doing well today. There were issues overnight with hypotension being noted, but no loyd symptoms. Assessment/Plan: Assessment: 06-27-16 Patient sitting up in chair. No chest pains. Mild ongoing (yet improving) neck pains. Last night, call from nursing with questions about hypotension that had been noted. No symptoms were appreciated with the hypotension. No chest pains or pressure. Patient also voiced concerns about 'fever', but temps have been normal (query if facial warmth noted by the patient is secondary to the extent of the haematoma noted. Patient voicing concerns about how she is ambulating with OT/PT (and their recommendations that she should go to a SNF given mobility concerns). 06-26-16 Patient doing better today. Neck pains are somewhat better. No chest pains or pressure. No PND or orthopnea. Facial swelling and discomfort is better today. No telemetry events overnight. Minimal discomfort to the pacer site has been noted. Ongoing scattered ecchymosis to head, neck, face, shoulder, and arms, is noted. CT of head and neck from yesterday without evidence of pathology noted - progressive haematoma to the scalp was noted, but no intercranial process noted, and no acute neck pathology appreciated. 06-25-16 Patient doing well today. Chief complaint is neck pains - this was not an issue yesterday - there was more an issue with forhead pains from the fall. Single lead pacer was implanted yesterday with moderate difficulty secondary to the patient's cardiac anatomy (dilated RA, dilated IVC, and severe TR). A single lead pacer was successfully placed yesterday with excellent pacing parameters noted this morning with interrogation. CXR post procedure was without pneumothorax, and this morning's CXR is pending. Minimal haematoma noted (in the setting of an INR that was elevated to 3 periprocedure). Patient feeling well today. No chest pains or pressure, just aches to joints and muscles today, thought secondary to the fall that was noted yesterday. 06-24-16 Patient is an 85 y/o female with multiple medical issues (CAD/PCI, multiple myeloma, diastolic CHF), HTN, HLP, MVR with MAZE (2013), chronic atrial fibrillation (on coumadin with [id number] score of 6), CRI, COPD, and hypothyroidism, who presented to [facility] ER after syncope and fall at home. Patient has been doing very well, without any complaints - according to both the patient and daughter, present with the patient in the room today. No chest pains or pressure. No PND or orthopnea. Patient has reportedly never had a syncopal event in the past. Fall today led to superficial trauma to her forehead. CT scan in the ER without intercranial pathology noted. Patient is a DNR, and they would otherwise, according to both the patient and the daughter , not have come to the ER, but the trauma from the fall led to the desire for work up. INR today was noted to be 3. Conversations between the patient and daughter led to the desire to have a cardiac work up performed. Several times, while talking to the patient (who reportedly lives alone), she passed out with patient monitor revealing pauses that were up to 30 seconds in duration, prior to cardiology presence in the ER exam room. Earlier in the day, the patient's pauses were only 8 seconds in duration, and did not lead to altered mental status. The patient is on max dose therapy on Coreg (25 mg twice per day ), but the duration and acuity of the symptoms noted require more accelerated resolution. In depth conversation with the patient and daughter about risks and benefits of the PPM procedure. Furthermore, it was discussed that the PPM implant is NOT similar to "open heart surgery". Consent was obtained via conversations with the daughter, given the patient being in and out of lucidity. There is a risk given the patient's INR being 3, but once again, the patient's pauses were becoming more protracted and severe with ongoing symptoms being noted with nearly every event noted on telemetry. Plan: (1) Coumadin for CVA risk to continue (nearly therapeutic today) (2) Will reduce the dose of Coreg from 25 mg twice per day to 12.5 mg twice per day (3) Lasix therapy also likely in need of outpatient adjustment (would trial 80 mg in the morning, and 40 mg in the early afternoon) (4) Statins to continue as at present (5) Would arrange for patient to be seen by Dr. Jessica Patel in the outpatient setting post follow up Subjective: No cardiovascular complaints were voiced today Objective: Vital Signs (8 Hrs) Temp Pulse Resp BP Pulse Ox 06/27/16 08:00 36.4 C 67 18 98/74 L 99 06/27/16 03:55 36.9 C 69 13 140/74 H 91 L Intake/Output (24 Hrs) 06/26/16 06/27/16 06/28/16 05:59 05:59 05:59 Intake Total 600 1250 Balance 600 1250 Intake: Oral (ml) 600 750 IV Infused (ml) 500 Ns 500 ml @ Wide Open IV 500 ONCE ONE Rx#:[id number] Other: Weight 78.4 kg Number of Voids Toilet 1 2 Result Diagrams: 06/26/16 04:10 06/26/16 04:10 Telemetry: Ventricular pacing was noted - Physical Exam Constitutional: WDWN, obese, other (scattered ecchymosis to upper thorax, head, neck, jaw, and upper extremities) Eyes: PERRL, EOMI Ears, Nose, Mouth, Throat: moist mucous membranes Cardiovascular: regular rate and rhythm, systolic murmur Peripheral Pulses: 2+: dorsalis-pedis (R), dorsalis-pedis (L) Respiratory: clear to auscultate bilat, no crackles, no wheezes Gastrointestinal: normoactive bowel sounds Skin: warm Musculoskeletal: muscular tenderness Neurologic: AAOx3, CN II-XII grossly intact Psychiatric: cooperative, interactive, following commands ICD10 Worksheet Patient Problems: Problems Problem Status Onset Atrial fibrillation Acute Mitral valve regurgitation Acute Scalp hematoma Acute Sinus pause Acute Syncope Acute Afib - Atrial fibrillation Active CAD - Coronary arteriosclerosis Active COPD - Acute exacerbation of chronic obstructive airways disease Active History of placement of stent for coronary artery disease Active Pneumonia Active Acute renal failure syndrome Acute Acute systolic CHF (congestive heart failure), NYHA class 3 Acute Chronic Disease Management/Transitional Care Program Acute Toxic multinodular goiter Acute
[2016-06-27] MEDS: IPRATROPIUM/ALBUTEROL 3 ML DEYVIAL IH SCH ×3 (09:27→20:17)
[2016-06-27] MEDS: POTASSIUM CL 20 MEQ TAB PO SCH ×2 (10:28→21:08)
[2016-06-27] MEDS: ALLOPURINOL 100 MG TAB PO SCH (10:29)
[2016-06-27] MEDS: FAMOTIDINE 20 MG TAB PO SCH (10:29)
[2016-06-27] MEDS: METHIMAZOLE 5 MG TAB PO SCH (10:29)
[2016-06-27] MEDS: MULTIVITAMINS 1 EACH TAB PO SCH (10:29)
[2016-06-27] MEDS: FUROSEMIDE 80 MG TAB PO SCH (10:29)
[2016-06-27] MEDS: OXYBUTYNIN CHLORIDE 5 MG TAB PO SCH ×2 (10:29→21:07)
--- NOTE | 2016-06-27 12:42 | HOSPPROG ---
Hospitalist Progress Note Assessment/Plan: 85 yo F new to my care today with hx of COPD, a fib, VHD presenting with c/o syncope found to be having profound sinus pause in ER now s/p PPM # a fib with long sinus pauses: up to 20 second pauses in ER leading to recurrent syncope and related facial trauma. Sp PPM placement (06/24/16) that was somewhat complicated but successful. Monitoring on tele. Holding BB. warfarin on hold but inr is nearly therapeutic -consider restarting Coumadin prior to dc # facial ecchymosis/neck pain: imaging of neck unremarkable and head ct x 2 not showing any kind of intracranial bleed. Vision not impaired. Holding AC, monitoring, pt/ot. # deconditioning and gait instability -still too weak to return home and pt is not agreeable to go to rehab #mild hypotension -will resume home dose of lasix of 80mg qam and 40mg at 1500 # ckd: baseline creatinine ranging from 1.6-2 and currently at baseline # copd: w/o evidence of acute exacerbation, continue op medications # MM: has been fairly indolent apparently, continue to follow with oncology # chronic systolic heart failure: no e/o acute exacerbation, cardiology following # IP status, will need > 48 hours stay for eval/mgmt of above. Patient refuses to go to SNF Care plan reviewed with patients daughter Subjective: still very weak and unsteaedy. improving right facial pain and eye swelling. no chest pain or sob Objective: Vital Signs Temp Pulse Resp BP Pulse Ox 36.6 C 89 17 116/53 L 98 06/27/16 12:00 06/27/16 12:00 06/27/16 12:00 06/27/16 12:00 06/27/16 12:00 Laboratory Results 06/26/16 04:10 06/26/16 04:10 06/26/16 06/27/16 06/28/16 05:59 05:59 05:59 Intake Total 600 1250 Balance 600 1250 PT 22.2 SEC (12.0-15.0) H 06/27/16 04:22 INR 1.93 (0.83-1.16) H 06/27/16 04:22 - Physical Exam Constitutional: not in pain Cardiovascular: regular rate and rhythym, no murmur, rub, or gallop Gastrointestinal: normoactive bowel sounds, soft, non-tender abdomen, no palpable masses, No guarding, No rebound Skin: other (extensive ecchymosis over right face) Neurologic: AAOx3, CN II-XII Intact, No facial droop ICD10 Worksheet Patient Problems: Problems Problem Status Onset Mitral valve regurgitation Acute Afib - Atrial fibrillation Active CAD - Coronary arteriosclerosis Active History of placement of stent for coronary artery disease Active Pneumonia Active COPD - Acute exacerbation of chronic obstructive airways disease Active Acute systolic CHF (congestive heart failure), NYHA class 3 Acute Chronic Disease Management/Transitional Care Program Acute Acute renal failure syndrome Acute Toxic multinodular goiter Acute Atrial fibrillation Acute Sinus pause Acute Syncope Acute Scalp hematoma Acute
[2016-06-27] MEDS: FUROSEMIDE 40 MG TAB PO SCH (14:40)
[2016-06-27] MEDS: CARVEDILOL 25 MG TAB PO SCH (15:46)
[2016-06-27] MEDS ORDERED: BISACODYL 10 MG SUPP PR PRN (17:00)
[2016-06-27] MEDS ORDERED: POLYETHYLENE GLYCOL 3350 17 GM PKT PO PRN (17:00)
[2016-06-27] MEDS ORDERED: LACTULOSE 20 GM/30 ML UDCUP PO PRN (17:00)
[2016-06-27] MEDS ORDERED: MAGNESIUM HYDROXIDE 30 ML UDCUP PO PRN (17:00)
[2016-06-27] MEDS: CARVEDILOL 6.25 MG TAB PO SCH (18:07)
[2016-06-27] MEDS: CALCITRIOL 0.25 MCG CAP PO SCH (18:09)
[2016-06-27] MEDS: SENNOSIDES/DOCUSATE SODIUM TAB PO SCH (21:07)
[2016-06-27] MEDS: ATORVASTATIN CALCIUM 20 MG TAB PO SCH (21:08)
[2016-06-28] MEDS: ACETAMINOPHEN 500 MG TAB PO SCH ×3 (04:51→20:47)
[2016-06-28] MEDS: METHIMAZOLE 5 MG TAB PO SCH (09:04)
[2016-06-28] MEDS: SENNOSIDES/DOCUSATE SODIUM TAB PO SCH ×2 (09:04→20:47)
[2016-06-28] MEDS: FUROSEMIDE 80 MG TAB PO SCH (09:04)
[2016-06-28] MEDS: POTASSIUM CL 20 MEQ TAB PO SCH ×2 (09:04→20:47)
[2016-06-28] MEDS: MULTIVITAMINS 1 EACH TAB PO SCH (09:04)
[2016-06-28] MEDS: FAMOTIDINE 20 MG TAB PO SCH (09:05)
[2016-06-28] MEDS: ALLOPURINOL 100 MG TAB PO SCH (09:05)
[2016-06-28] MEDS: CARVEDILOL 6.25 MG TAB PO SCH ×2 (09:05→17:39)
[2016-06-28] MEDS: OXYBUTYNIN CHLORIDE 5 MG TAB PO SCH ×2 (09:05→20:48)
[2016-06-28] MEDS: IPRATROPIUM/ALBUTEROL 3 ML DEYVIAL IH SCH ×3 (10:03→22:06)
--- NOTE | 2016-06-28 14:36 | HOSPPROG ---
Hospitalist Progress Note Assessment/Plan: 85 yo F with hx of COPD, a fib, VHD presenting with c/o syncope found to be having profound sinus pause in ER now s/p PPM # a fib with long sinus pauses: up to 20 second pauses in ER leading to recurrent syncope and related facial trauma. Sp PPM placement and doing well since then without significant events noted on personal review of tele etc. # facial ecchymosis/neck pain: imaging of neck unremarkable and head ct x 2 not showing any kind of intracranial bleed. Vision not impaired. Holding AC, monitoring. Neck pain improved, swelling is coming down and ecchymoses is tracking down neck # ckd: baseline creatinine ranging from 1.6-2 and currently at baseline # copd: w/o evidence of acute exacerbation, continue op medications # MM: has been fairly indolent apparently, continue to follow with oncology # chronic systolic heart failure: no e/o acute exacerbation, cardiology following # deconditioning: improved but continues to be somewhat weak s/p above given significant recent stress etc. Will likely be stable for dc home in the next 24 hours if continues to improve as recently # IP status, will need > 48 hours stay for eval/mgmt of above. Patient states she will not be willing to go to SNF Subjective: no significant overnight events, she is doing a bit better, has been able to walk up stairs with pt, still feels a bit weak and its hard to get out of bed w/o help however Objective: Vital Signs Temp Pulse Resp BP Pulse Ox 36.6 C 69 18 109/57 L 97 06/28/16 11:30 06/28/16 11:30 06/28/16 11:30 06/28/16 11:30 06/28/16 11:30 Laboratory Results 06/26/16 04:10 06/26/16 04:10 06/27/16 06/28/16 06/29/16 05:59 05:59 05:59 Intake Total 1250 1000 Output Total 300 Balance 1250 1000 -300 PT 22.2 SEC (12.0-15.0) H 06/27/16 04:22 INR 1.93 (0.83-1.16) H 06/27/16 04:22 awake alert right sided ecchymoses, from forehead to neck op clear rrr no mrg cta but dec throughout soft nt nd no cce warm dry diffuse ecchymoses oriented appropriate - Time Spent With Patient Time Spent with Patient: greater than 35 minutes Time Spent with Patient: Greater than 35 minutes spent on this patients care, greater than 50% of time spent counseling, educating, and coordinating care regarding the above mentioned plan. ICD10 Worksheet Patient Problems: Problems Problem Status Onset Atrial fibrillation Acute Mitral valve regurgitation Acute Scalp hematoma Acute Sinus pause Acute Syncope Acute Afib - Atrial fibrillation Active CAD - Coronary arteriosclerosis Active COPD - Acute exacerbation of chronic obstructive airways disease Active History of placement of stent for coronary artery disease Active Pneumonia Active Acute renal failure syndrome Acute Acute systolic CHF (congestive heart failure), NYHA class 3 Acute Chronic Disease Management/Transitional Care Program Acute Toxic multinodular goiter Acute
[2016-06-28] MEDS: FUROSEMIDE 40 MG TAB PO SCH (16:09)
[2016-06-28] MEDS: ATORVASTATIN CALCIUM 20 MG TAB PO SCH (20:48)
[2016-06-28 23:22] VITALS: TEMP 97.7
[2016-06-29 08:48] VITALS: BP 141/66; PULSE 73
[2016-06-29] MEDS: ACETAMINOPHEN 500 MG TAB PO SCH (09:17)
[2016-06-29] MEDS: IPRATROPIUM/ALBUTEROL 3 ML DEYVIAL IH SCH (09:26)
[2016-06-29 09:35] VITALS: RESP 16
[2016-06-29] MEDS: OXYBUTYNIN CHLORIDE 5 MG TAB PO SCH (10:10)
[2016-06-29] MEDS: SENNOSIDES/DOCUSATE SODIUM TAB PO SCH (10:10)
[2016-06-29] MEDS: FAMOTIDINE 20 MG TAB PO SCH (10:10)
[2016-06-29] MEDS: FUROSEMIDE 80 MG TAB PO SCH (10:10)
[2016-06-29] MEDS: METHIMAZOLE 5 MG TAB PO SCH (10:10)
[2016-06-29] MEDS: ALLOPURINOL 100 MG TAB PO SCH (10:10)
[2016-06-29] MEDS: POTASSIUM CL 20 MEQ TAB PO SCH (10:11)
[2016-06-29] MEDS: MULTIVITAMINS 1 EACH TAB PO SCH (10:11)
[2016-06-29] MEDS: CARVEDILOL 6.25 MG TAB PO SCH (10:11)
--- NOTE | 2016-06-29 11:19 | PDDCSUM ---
Discharge Summary Discharge Summary: Dates of service: 06/24-06/29/16 Consultations: cardiology Procedures performed: PPM placement, head ct/cspine ct x 2 Hospital course by problem: # a fib with long sinus pauses: up to 20 second pauses in ER leading to recurrent syncope and related facial trauma. Sp PPM placement. Discharged on lower dose bb, holding coumadin for now given extensive ecchymosis as next. will f/u with cardiology in the next 1-2 weeks to determine if she should resume AC. CHADS vasc of 4. # facial ecchymosis/neck pain: imaging of neck unremarkable and head ct x 2 not showing any kind of intracranial bleed. Bruising improved but remains extensive with large hematoma especially above orbit. As above, holding AC for now to allow this to heal. # ckd: baseline creatinine ranging from 1.6-2 and currently at baseline # copd: w/o evidence of acute exacerbation, continue op medications # MM: has been fairly indolent apparently, continue to follow with oncology # chronic systolic heart failure: no e/o acute exacerbation, cardiology following # deconditioning: improved, working with PT and doing well, felt to be safe for dc home, she was given precautions especially around transferring. Dispo: dc home Meds: see EHR > 35 minutes spent in dc of patient, more than half in face to face counseling of patient regarding f/u care plan and in coordination of care
--- NOTE | 2016-06-29 11:19 | PDIAF ---
- Diagnosis Code Status: Do Not Resuscitate - Medication Management Discharge Medications: Medications to Continue on Transfer Allopurinol [Allopurinol 100 MG (*)] 100 mg PO DAILY 07/25/11 [Last Taken ] Multivitamins [Multivitamin (*)] 1 each PO DAILY 07/25/11 [Last Taken 06/23/16] Atorvastatin Calcium [Lipitor 20 mg (*)] 20 mg PO HS 03/08/13 [Last Taken ] Famotidine [Pepcid 20 MG (*)] 20 mg PO DAILY 04/29/13 [Last Taken 06/23/16] Aspirin [Aspirin 81mg (*)] 81 mg PO DAILY 07/08/13 [Last Taken 06/23/16] Oxybutynin Chloride [Ditropan] 5 mg PO BID #60 tab 07/15/13 [Last Taken 21:00] Potassium Cl [Klor-Con 20 meq (*)] 20 meq PO BID 09/22/13 [Last Taken 06/23/16 21:00] Calcitriol [Calcitriol (*)] 0.5 mcg PO MOTUWETHFR 06/24/16 [Last Taken 06/23/16] Furosemide [Lasix 80 MG (*)] 80 mg PO BID@06/24/16 [Last Taken 06/23/16 19 :00] Herbals/Supplements -Info Only 1 ea PO DAILY 06/24/16 [Last Taken Unknown] Methimazole [Tapazole 5MG (*)] 5 mg PO DAILY 06/24/16 [Last Taken 06/23/16] Albuterol [Proventil Inhaler HFA (*)] 1 - 2 puffs IH Q4H PRN 06/25/16 [Last Taken Unknown] Ipratropium/Albuterol [Duoneb (*)] 3 ml IH TID 06/25/16 [Last Taken Unknown] Acetaminophen [Tylenol ES 500 mg (*)] 1,000 mg PO Q8 tab 06/29/16 [Last Taken Unknown] Carvedilol [Coreg (*)] 12.5 mg PO BIDMEAL #60 tab 06/29/16 [Last Taken Unknown] Sennosides/Docusate Sodium [Senokot-S] 1 - 2 tab PO BID tab 06/29/16 [Last Taken Unknown] Discharge Medications: Refer to the Discharge Home Medication list for PRN reason. - Orders Services needed: Home Care, Registered Nurse, Physical Therapy, Occupational Therapy Home Care Face to Face: I certify that this patient was under my care and that I had the required [id number] encounter meeting the encounter requirements on the discharge day. My findings support the fact that the patient is homebound as defined in CMS Chapter 7 Medicare Benefits Manual 30.1.1, The condition of the patient is such that there exists a normal inability to leave home and consequently, leaving home would require a considerable and taxing effort. Diet Recommendation: no restrictions on diet - Labs/Radiology BMP Date: 07/02/16 CBC Date: 07/02/16 - Follow Up Care Current Providers and Referrals: Patient,NotPresent [Unknown] - As per Instructions Michael Dillard MD [Medical Doctor] - follow up in 1 week
[2016-06-29 15:02] VITALS: O2SAT 92
== END 2016-06-29 13:35 | disposition home health service (06) | DRG 243 ==
LOC: EDUNIT# → UNDOADMIN 09:34 → F2W 16:51
PROVIDERS: ADMIT Internal Medicine; ATTEND Internal Medicine
DX: I45.9 Conduction disorder, unspecified (principal); I48.2 Chronic atrial fibrillation; S00.83XA Contusion of other part of head, initial encounter; M54.2 Cervicalgia; W19.XXXA Unspecified fall, initial encounter; I36.1 Nonrheumatic tricuspid (valve) insufficiency; I50.22 Chronic systolic (congestive) heart failure; I25.10 Atherosclerotic heart disease of native coronary artery without angina pectoris; J44.9 Chronic obstructive pulmonary disease, unspecified; I12.9 Hypertensive chronic kidney disease with stage 1 through stage 4 chronic kidney disease, or unspecified chronic kidney disease; N18.9 Chronic kidney disease, unspecified; E78.5 Hyperlipidemia, unspecified; E03.9 Hypothyroidism, unspecified; C90.00 Multiple myeloma not having achieved remission; I25.2 Old myocardial infarction; Z99.81 Dependence on supplemental oxygen; Z87.891 Personal history of nicotine dependence; Z95.5 Presence of coronary angioplasty implant and graft; Z79.01 Long term (current) use of anticoagulants; Z66 Do not resuscitate
CPT/HCPCS: 96374; 97116-GP; 97162-GP; 97165-GO; 97530-GO; 97530-GP; 97535-GO; C1786; C1898; G8978-GP-CJ; G8979-GP-CI; G8980-GP-CI; G8987-GO-CK; G8988-GO-CI; J0360; J0690; J2250; J2405; J3010; J3430; P9017; Q9967

== ENCOUNTER → 2016-11-30 | Outpatient (CLI) | payer OTHER | LOC: FIMAGING 11:47 | PROVIDERS: ATTEND Internal Medicine Pulmonary Disease | DX: J44.9 Chronic obstructive pulmonary disease, unspecified (principal); E04.1 Nontoxic single thyroid nodule; J39.8 Other specified diseases of upper respiratory tract; Z95.1 Presence of aortocoronary bypass graft ==

== ENCOUNTER → 2017-12-02 | Outpatient (CLI) | payer OTHER | LOC: FIMAGING 12:41 | PROVIDERS: ATTEND Internal Medicine Hematology & Oncology | DX: C90.00 Multiple myeloma not having achieved remission (principal) ==

== ENCOUNTER → 2017-12-23 | Outpatient (CLI) | payer OTHER | LOC: FIMAGING 11:57 | PROVIDERS: ATTEND Internal Medicine Hematology & Oncology | DX: E04.2 Nontoxic multinodular goiter (principal) ==